=== PATIENT | male | born 1970 | race Hispanic/Latino ===

== ENCOUNTER 2016-08-04 22:29 | Inpatient (IN) | payer OTHER ==
[~2016-08-04] VITALS: Ht 180.3 cm; Wt 111.1 kg
[~2016-08-04 22:29] MED LIST: AMOX TR-K CLV1 EAC4 PO; PROMETHAZINE HC25 M1 PO
[2016-08-04 22:48] LABS: BASOPHIL COUNT 0.1 K/uL (0-0.1); EOSINOPHIL (%) 0.8 % (0-5); EOSINOPHIL COUNT 0.1 K/uL (0-0.3); HEMATOCRIT 46.1 % (38.0-50.0); IMMATURE GRANULOCYTE (%) 1.2 % (0.0-0.7); IMMATURE GRANULOCYTE COUNT 0.2 K/uL; INSTRUMENT ABS NEUTROPHIL CT 12.1 K/uL; LYMPHOCYTE COUNT 3.9 K/uL (1.0-2.8); MCH 28.8 PG (29.0-34.0); MCHC 32.1 G/DL (30.0-36.0); MCV 89.7 FL (86-99); MEAN PLAT.VOLUME 9.4 uM^3 (9.0-12.4); MONOCYTE (%) 4.3 % (3-12); MONOCYTE COUNT 0.7 K/uL (0-0.8); NEUTROPHIL (%) 70.5 % (45-76); NEUTROPHIL COUNT 12.1 K/uL (1.8-6.4); PLATELET COUNT 336 K/uL (156-360); RBC DIS.WIDTH-CV 13.7 % (11.8-14.6); RBC DIS.WIDTH-SD 45.5 % (39-53); RED BLOOD COUNT 5.14 M/uL (4.00-5.50); WHITE BLOOD COUNT 17.2 K/uL (4.1-10.2)
[2016-08-04 23:00] LABS: AMYLASE 65 IU/L (1-118)
[2016-08-04 23:01] LABS: CHLORIDE 106 mEq/L (99-109); POTASSIUM 3.6 mEq/L (3.7-5.4); SODIUM 142 mEq/L (136-147)
[2016-08-04 23:02] LABS: GLUCOSE 103 mg/dL (70-99)
[2016-08-04 23:04] LABS: ANION GAP 16 MEQ/L (2-14)
[2016-08-04 23:05] LABS: SERUM ETHYL ALCOHOL 150 mg/dL
[2016-08-04 23:06] LABS: GFR ESTIMATE (CALCULATED) 58 mL/min/
[2016-08-04 23:07] LABS: UREA NITROGEN (BUN) 13 mg/dL (9-23)
[2016-08-04 23:09] LABS: LIPASE 147 U/L (1.0-51.0)
[2016-08-05] VITALS (21 sets, daily range): BP systolic 0–168; BP diastolic 0–117
[2016-08-05 00:46] LABS: ADD MIUA? YES; BILIRUBIN NEGATIVE; BLOOD MODERATE; COLOR YELLOW ((YELLOW)); GLUCOSE (STRIP) NEGATIVE; KETONES NEGATIVE; LEUKOCYTES NEGATIVE; NITRITE NEGATIVE; PROTEIN (STRIP) 100; SPECIFIC GRAVITY 1.014 (1.000-1.030); UROBILINOGEN 0.2 MG/DL (0.2-1.0)
[2016-08-05 00:54] LABS: BACTERIA NONE SEEN /HPF; EPITHELIAL CELLS RARE /HPF; MUCUS NONE SEEN /LPF; UCUL ADDED? NO
[2016-08-05 00:58] LABS: AMPHETAMINE NEGATIVE (500 ng/mL); BARBITURATES NEGATIVE (200 ng/mL); BENZODIAZEPINES NEGATIVE (150 ng/mL); COCAINE NEGATIVE (150 ng/mL); INTERNAL CONTROLS VALID? YES; METHADONE NEGATIVE (200 ng/mL); METHAMPHETAMINE NEGATIVE (500 ng/mL); OPIATES (MORPHINE) NEGATIVE (100 ng/mL); OXYCODONE NEGATIVE (100 ng/mL); PHENCYCLIDINE NEGATIVE (25 ng/mL); PROPOXYPHENE NEGATIVE (300 ng/mL); THC CANNABINOIDS PRESUMPTIVE POSITIVE (50 ng/mL); TRICYCLIC ANTIDEPRESSANTS NEGATIVE (300 ng/mL)
[2016-08-05 00:59] LABS: ADD MEDTOX COMMENT Y
[2016-08-05 01:19] LABS: MAGNESIUM 2.4 mg/dL (1.3-2.7)
[2016-08-05 02:59] LABS: METH RESISTANT S AUREUS PCR NEGATIVE (NEGATIVE)
[2016-08-05 03:00] LABS: PROBE CHECK PASS; SPECIMEN PROCESSING CONTROL PASS
[2016-08-05 04:50] LABS: HEMATOCRIT 42.9 % (38.0-50.0); MCH 28.9 PG (29.0-34.0); MCHC 31.7 G/DL (30.0-36.0); MCV 91.1 FL (86-99); MEAN PLAT.VOLUME 9.6 uM^3 (9.0-12.4); PLATELET COUNT 258 K/uL (156-360); RBC DIS.WIDTH-SD 47.2 % (39-53); RED BLOOD COUNT 4.71 M/uL (4.00-5.50); WHITE BLOOD COUNT 15.4 K/uL (4.1-10.2)
[2016-08-05 05:00] LABS: CHLORIDE 110 mEq/L (99-109); SODIUM 142 mEq/L (136-147)
[2016-08-05 05:02] LABS: GLUCOSE 138 mg/dL (70-99)
[2016-08-05 05:03] LABS: ANION GAP 9 MEQ/L (2-14)
[2016-08-05 05:04] LABS: TOTAL BILIRUBIN 0.5 mg/dL (0.0-1.0)
[2016-08-05 05:05] LABS: ALKALINE PHOSPHATASE 58 IU/L (3-129)
[2016-08-05 05:06] LABS: GFR ESTIMATE (CALCULATED) > 59 mL/min/
[2016-08-05 05:07] LABS: POTASSIUM 4.9 mEq/L (3.7-5.4); UREA NITROGEN (BUN) 14 mg/dL (9-23)
[2016-08-05 13:50] LABS: HEMATOCRIT 41.9 % (38.0-50.0); MCV 93.3 FL (86-99)
[2016-08-05 21:49] LABS: HEMATOCRIT 37.4 % (38.0-50.0)
[2016-08-06] VITALS (16 sets, daily range): BP systolic 0–164; BP diastolic 0–94
[2016-08-06 06:38] LABS: HEMATOCRIT 37.3 % (38.0-50.0); MCH 29.1 PG (29.0-34.0); MCHC 31.1 G/DL (30.0-36.0); MCV 93.5 FL (86-99); MEAN PLAT.VOLUME 10.2 uM^3 (9.0-12.4); PLATELET COUNT 186 K/uL (156-360); RBC DIS.WIDTH-SD 48.4 % (39-53); RED BLOOD COUNT 3.99 M/uL (4.00-5.50); WHITE BLOOD COUNT 14.9 K/uL (4.1-10.2)
[2016-08-06 06:51] LABS: ALKALINE PHOSPHATASE 52 IU/L (3-129); ANION GAP 7 MEQ/L (2-14); CHLORIDE 105 MEQ/L (99-109); GFR ESTIMATE (CALCULATED) > 59 mL/min/; GLUCOSE 113 mg/dL (70-99); POTASSIUM 4.2 MEQ/L (3.7-5.4); SAMPLE HEMOLYSIS CHECK 0; SAMPLE ICTERIC CHECK 0; SAMPLE LIPEMIA CHECK 0; SODIUM 136 MEQ/L (136-147); TOTAL BILIRUBIN 0.7 MG/DL (0.0-1.0); UREA NITROGEN (BUN) 13 mg/dL (9-23)
[2016-08-06 08:45] LABS: MAGNESIUM 1.8 mg/dl (1.3-2.7)
[2016-08-06 08:48] LABS: Estimated Average Glucose 105 mg/dL (70-123); HEMOGLOBIN A1c (GLYCOHEMOGLOB) 5.3 % HGB (Below 5.7)
[2016-08-07] VITALS (16 sets, daily range): BP systolic 0–156; BP diastolic 0–95
[2016-08-07 06:48] LABS: MCHC 32.3 G/DL (30.0-36.0); MCV 92.9 FL (86-99); MEAN PLAT.VOLUME 10.6 uM^3 (9.0-12.4); PLATELET COUNT 132 K/uL (156-360); RBC DIS.WIDTH-CV 13.8 % (11.8-14.6); RBC DIS.WIDTH-SD 46.8 % (39-53); RED BLOOD COUNT 3.23 M/uL (4.00-5.50); WHITE BLOOD COUNT 11.8 K/uL (4.1-10.2)
[2016-08-07 07:19] LABS: ALKALINE PHOSPHATASE 51 IU/L (3-129); ANION GAP 6 MEQ/L (2-14); CHLORIDE 106 MEQ/L (99-109); GFR ESTIMATE (CALCULATED) > 59 mL/min/; GLUCOSE 134 mg/dL (70-99); POTASSIUM 4.3 MEQ/L (3.7-5.4); SAMPLE HEMOLYSIS CHECK 0; SAMPLE ICTERIC CHECK 0; SAMPLE LIPEMIA CHECK 0; SODIUM 137 MEQ/L (136-147); TOTAL BILIRUBIN 0.6 MG/DL (0.0-1.0); UREA NITROGEN (BUN) 10 mg/dL (9-23)
[2016-08-08] VITALS (7 sets, daily range): BP systolic 125–158; BP diastolic 84–95
[2016-08-08 05:42] LABS: HEMATOCRIT 33.1 % (38.0-50.0); MCHC 31.4 G/DL (30.0-36.0); MCV 92.2 FL (86-99); MEAN PLAT.VOLUME 10.4 uM^3 (9.0-12.4); RBC DIS.WIDTH-CV 13.8 % (11.8-14.6); RBC DIS.WIDTH-SD 46.8 % (39-53); RED BLOOD COUNT 3.59 M/uL (4.00-5.50); WHITE BLOOD COUNT 11.2 K/uL (4.1-10.2)
[2016-08-08 05:49] LABS: PLATELET COUNT 174 K/uL (156-360)
[2016-08-09] VITALS (8 sets, daily range): BP systolic 131–162; BP diastolic 79–97
[2016-08-10 05:00] VITALS: BP 137/89
[2016-08-10 08:02] VITALS: BP 133/88
[2016-08-10 12:04] VITALS: BP 139/84
[2016-08-10 16:16] VITALS: BP 140/84
[2016-08-11] VITALS (7 sets, daily range): BP systolic 113–142; BP diastolic 64–85
[2016-08-12 04:45] VITALS: BP 117/74
[2016-08-12 05:21] LABS: HEMATOCRIT 34.5 % (38.0-50.0); MCH 28.9 PG (29.0-34.0); MCHC 31.9 G/DL (30.0-36.0); MCV 90.6 FL (86-99); MEAN PLAT.VOLUME 9.3 uM^3 (9.0-12.4); RBC DIS.WIDTH-CV 13.8 % (11.8-14.6); RBC DIS.WIDTH-SD 45.4 % (39-53); RED BLOOD COUNT 3.81 M/uL (4.00-5.50); WHITE BLOOD COUNT 13.5 K/uL (4.1-10.2)
[2016-08-12 05:22] LABS: PLATELET COUNT 289 K/uL (156-360)
[2016-08-12 06:36] LABS: ALKALINE PHOSPHATASE 56 IU/L (3-129); ANION GAP 7 MEQ/L (2-14); CHLORIDE 100 MEQ/L (99-109); GFR ESTIMATE (CALCULATED) > 59 mL/min/; GLUCOSE 97 mg/dL (70-99); POTASSIUM 4.2 MEQ/L (3.7-5.4); SAMPLE HEMOLYSIS CHECK 0; SAMPLE ICTERIC CHECK 0; SAMPLE LIPEMIA CHECK 0; SODIUM 136 MEQ/L (136-147); TOTAL BILIRUBIN 0.6 MG/DL (0.0-1.0); UREA NITROGEN (BUN) 17 mg/dL (9-23)
[2016-08-12 08:34] VITALS: BP 116/65
[2016-08-12 11:37] VITALS: BP 131/83
[2016-08-12 16:17] VITALS: BP 135/78
[2016-08-12 20:17] VITALS: BP 140/75
[2016-08-13 00:06] VITALS: BP 141/95
[2016-08-13 04:46] VITALS: BP 126/73
[2016-08-13 08:49] VITALS: BP 130/72
[2016-08-13 12:30] VITALS: BP 121/68
[2016-08-13 16:27] VITALS: BP 122/65
[2016-08-13 20:16] VITALS: BP 143/77
[2016-08-14 00:29] VITALS: BP 128/80
[2016-08-14 03:53] VITALS: BP 141/86
[2016-08-14 05:02] LABS: INTER. NORMALIZED RATIO 1.1; PROTHROMBIN TIME 10.9 (9.2-11.2); PTT 30.9 (25-32)
[2016-08-14 08:27] VITALS: BP 153/90
[2016-08-14 12:18] VITALS: BP 158/93
[2016-08-14 16:16] VITALS: BP 142/89
[2016-08-14 20:04] VITALS: BP 103/71
[2016-08-15 04:00] VITALS: BP 115/75
[2016-08-15 08:20] VITALS: BP 143/83
[2016-08-15 12:44] VITALS: BP 130/74
[2016-08-15 16:01] VITALS: BP 140/76
[2016-08-15 20:29] VITALS: BP 146/85
[2016-08-15 23:37] VITALS: BP 114/70
[2016-08-16 04:20] VITALS: BP 128/81
[2016-08-16 06:19] LABS: BASOPHIL COUNT 0.1 K/uL (0-0.1); EOSINOPHIL (%) 2.8 % (0-5); EOSINOPHIL COUNT 0.3 K/uL (0-0.3); HEMATOCRIT 36.6 % (38.0-50.0); IMMATURE GRANULOCYTE (%) 1.4 % (0.0-0.7); IMMATURE GRANULOCYTE COUNT 0.1 K/uL; INSTRUMENT ABS NEUTROPHIL CT 5.9 K/uL; LYMPHOCYTE COUNT 1.9 K/uL (1.0-2.8); MCH 28.6 PG (29.0-34.0); MCHC 30.9 G/DL (30.0-36.0); MCV 92.7 FL (86-99); MONOCYTE (%) 10.4 % (3-12); NEUTROPHIL (%) 64.1 % (45-76); NEUTROPHIL COUNT 5.9 K/uL (1.8-6.4); PLATELET COUNT 348 K/uL (156-360); RBC DIS.WIDTH-CV 13.3 % (11.8-14.6); RBC DIS.WIDTH-SD 45.3 % (39-53); RED BLOOD COUNT 3.95 M/uL (4.00-5.50)
[2016-08-16 06:20] LABS: WHITE BLOOD COUNT 9.1 K/uL (4.1-10.2)
[2016-08-16 06:44] LABS: ANION GAP 7 MEQ/L (2-14); CHLORIDE 100 MEQ/L (99-109); GFR ESTIMATE (CALCULATED) > 59 mL/min/; GLUCOSE 91 mg/dL (70-99); POTASSIUM 3.9 MEQ/L (3.7-5.4); SAMPLE HEMOLYSIS CHECK 0; SAMPLE ICTERIC CHECK 0; SAMPLE LIPEMIA CHECK 0; SODIUM 137 MEQ/L (136-147); TOTAL BILIRUBIN 0.5 MG/DL (0.0-1.0); UREA NITROGEN (BUN) 18 mg/dL (9-23)
[2016-08-16 06:45] LABS: ALKALINE PHOSPHATASE 87 IU/L (3-129)
[2016-08-16 08:02] VITALS: BP 117/70
[2016-08-16 09:59] LABS: TYPE OF FLUID THORACENTESIS
[2016-08-16 10:47] LABS: BODY FLUID EOSINOPHILS 0 % (0-25); BODY FLUID LDH 235 IU/L; BODY FLUID PROTEIN 4.6 G/DL; BODY FLUID RBC'S 273000 /MM^3 (0-100); BODY FLUID WBC'S 2705 /MM^3 (0-500); MONONUCLEAR WBC'S 85 %; POLYNUCLEAR WBC'S 15 % (0-25)
[2016-08-16 11:07] VITALS: BP 120/74
[2016-08-16 16:37] VITALS: BP 139/97
[2016-08-16 20:40] VITALS: BP 140/83
[2016-08-16 23:41] VITALS: BP 168/86
[2016-08-17 05:02] VITALS: BP 147/85
[2016-08-17 07:50] VITALS: BP 126/76
[2016-08-17 12:21] VITALS: BP 124/66
[2016-08-17 16:30] VITALS: BP 140/78
[2016-08-17 19:26] VITALS: BP 138/85
[2016-08-17 23:45] VITALS: BP 119/72
[2016-08-18 03:26] VITALS: BP 116/72
[2016-08-18 08:03] VITALS: BP 141/80
[2016-08-18 10:22] VITALS: BP 11/75
[2016-08-18 16:05] VITALS: BP 126/72
[2016-08-18 21:15] VITALS: BP 138/81
[2016-08-19 00:23] VITALS: BP 131/75
[2016-08-19 08:17] VITALS: BP 122/68
[2016-08-19] MEDS ORDERED: DIAZEPAM5 MG PO (13:08)
[2016-08-19] MEDS ORDERED: OXYCODONE HCL5 MG PO (13:08)
[2016-08-19] MEDS ORDERED: CHLORZOXAZONE500 MG PO (13:08)
[2016-08-19] MEDS ORDERED: SENNA LAX8.6 MG PO (13:08)
[2016-08-19] MEDS ORDERED: LIDOCAINE700 MG TD (13:08)
[2016-08-19] MEDS ORDERED: OXYCONTIN15 MG PO (13:08)
[2016-08-19 16:31] VITALS: BP 136/89
[2016-08-20 00:39] VITALS: BP 120/84
[2016-08-20 08:27] VITALS: BP 111/70
[2016-08-20] MEDS ORDERED: PROAIR HFA8.5 GM IH (14:45)
== END 2016-08-20 15:04 | disposition home or self-care (01) | DRG 963 ==
LOC: TRA 22:29 → 3EAST 08-05 00:34 → EDOF 08-05 00:34 → 4WEST 08-05 00:34 → 3EAST 08-09 20:07
PROVIDERS: Emergency Medicine; Internal Medicine Pulmonary Disease; Surgery
DX: S27.2XXA Traumatic hemopneumothorax, initial encounter (principal); S22.5XXA Flail chest, initial encounter for closed fracture; S32.029A Unspecified fracture of second lumbar vertebra, initial encounter for closed fracture; S32.019A Unspecified fracture of first lumbar vertebra, initial encounter for closed fracture; S32.039A Unspecified fracture of third lumbar vertebra, initial encounter for closed fracture; F10.229 Alcohol dependence with intoxication, unspecified; Y90.6 Blood alcohol level of 120-199 mg/100 ml; S27.321A Contusion of lung, unilateral, initial encounter; S36.030A Superficial (capsular) laceration of spleen, initial encounter; S36.114A Minor laceration of liver, initial encounter; V47.0XXA Car driver injured in collision with fixed or stationary object in nontraffic accident, initial encounter; Y92.411 Interstate highway as the place of occurrence of the external cause; J18.9 Pneumonia, unspecified organism; R03.0 Elevated blood-pressure reading, without diagnosis of hypertension; E78.5 Hyperlipidemia, unspecified; R09.02 Hypoxemia; F12.10 Cannabis abuse, uncomplicated; J98.11 Atelectasis; E66.9 Obesity, unspecified; Z68.34 Body mass index [BMI] 34.0-34.9, adult; F17.210 Nicotine dependence, cigarettes, uncomplicated
CPT/HCPCS: 70450; 71010; 71020; 71250; 71260; 72125; 72129; 72132; 74177; 76604; 80048; 80053; 81003; 82150; 82945; 83036; 83615; 83615 91; 83690; 83735; 84100; 84155; 84157; 84999; 85014; 85018; 85025; 85027; 85610; 85730; 86900; 86901; 87070; 87075; 87116; 87205; 87206; 87641; 88108; 88305; 89051; 93005; 94010; 94640; 94640 76; 94668; 94799; 97530 GO; 97530 GP; 99202; 99281; 99285; G0480; J0696; J1170; J1885; J2405; J2765; J3010; J7040; J7050; J7120; J7512

== ENCOUNTER → 2016-08-27 | Outpatient (CLI) | payer OTHER ==
[~2016-08-27] MED LIST changes: +CHLORZOXAZONE500 MG PO; +DIAZEPAM5 MG PO; +LIDOCAINE700 MG TD; +OXYCODONE HCL5 MG PO; +OXYCONTIN15 MG PO; +PROAIR HFA8.5 GM IH; +SENNA LAX8.6 MG PO
== END | disposition home or self-care (01) ==
LOC: AMB 10:58
DX: S22.42XA Multiple fractures of ribs, left side, initial encounter for closed fracture (principal); S27.329A Contusion of lung, unspecified, initial encounter; S27.1XXA Traumatic hemothorax, initial encounter; M25.512 Pain in left shoulder; V49.9XXA Car occupant (driver) (passenger) injured in unspecified traffic accident, initial encounter
CPT/HCPCS: 99213

== ENCOUNTER → 2016-08-27 | Outpatient (CLI) | payer OTHER | END | disposition home or self-care (01) | LOC: RAD 10:04 | DX: S27.329D Contusion of lung, unspecified, subsequent encounter (principal); J98.11 Atelectasis; J94.2 Hemothorax; V89.2XXD Person injured in unspecified motor-vehicle accident, traffic, subsequent encounter | CPT/HCPCS: 71020 ==

== ENCOUNTER → 2016-09-14 | Outpatient (CLI) | payer OTHER | END | disposition home or self-care (01) | LOC: AMB 12:53 | DX: S22.49XD Multiple fractures of ribs, unspecified side, subsequent encounter for fracture with routine healing (principal); M25.512 Pain in left shoulder; V49.9XXS Car occupant (driver) (passenger) injured in unspecified traffic accident, sequela | CPT/HCPCS: 71020; 73030; 99212 ==

== ENCOUNTER 2016-10-01 08:16 | Emergency (ER) | payer OTHER ==
[~2016-10-01] VITALS: Ht 180.3 cm; Wt 108.4 kg
[2016-10-01 09:13] LABS: HEMATOCRIT 46.2 % (38.0-50.0); MCHC 33.3 G/DL (30.0-36.0); MEAN PLAT.VOLUME 9.8 uM^3 (9.0-12.4); PLATELET COUNT 268 K/uL (156-360); RBC DIS.WIDTH-CV 13.6 % (11.8-14.6); RBC DIS.WIDTH-SD 43.4 % (39-53); RED BLOOD COUNT 5.31 M/uL (4.00-5.50); WHITE BLOOD COUNT 6.7 K/uL (4.1-10.2)
[2016-10-01 09:22] LABS: CHLORIDE 107 mEq/L (99-109); SODIUM 138 mEq/L (136-147)
[2016-10-01 09:24] LABS: GLUCOSE 102 mg/dL (70-99)
[2016-10-01 09:25] LABS: ANION GAP 11 MEQ/L (2-14)
[2016-10-01 09:26] LABS: D-DIMER ELISA 0.56 mg/L FEU (< 0.57)
[2016-10-01 09:28] LABS: GFR ESTIMATE (CALCULATED) > 59 mL/min/
[2016-10-01 09:29] LABS: UREA NITROGEN (BUN) 9 mg/dL (9-23)
[2016-10-01 09:36] LABS: TROP-I INTERPRETATION NEGATIVE; TROPONIN-I < 0.01 ng/mL (0.0-0.30)
[2016-10-01] MEDS ORDERED: PERCOCET 5/31 TABLET PO (11:42)
[2016-10-01 12:18] VITALS: BP 150/108
== END 2016-10-01 12:17 | disposition home or self-care (01) ==
LOC: EME 08:16
PROVIDERS: Emergency Medicine
DX: S22.42XD Multiple fractures of ribs, left side, subsequent encounter for fracture with routine healing (principal); V49.9XXD Car occupant (driver) (passenger) injured in unspecified traffic accident, subsequent encounter; R07.89 Other chest pain; I45.10 Unspecified right bundle-branch block; F17.200 Nicotine dependence, unspecified, uncomplicated
CPT/HCPCS: 71010; 80048; 81003; 84484; 85027; 85379; 93005; 99281; 99284